=== PATIENT | male | born 1985 | race African-American/Black ===

== ENCOUNTER 2016-10-10 21:51 | Emergency (ER) | payer MEDICAID ==
[~2016-10-10] VITALS: Ht 175.3 cm; Wt 67.1 kg
[~2016-10-10 21:51] MED LIST: ACETAMINOPHEN-1 EAC1 ORAL; NORCO 5-325 TA1 EACH ORAL; ZOFRAN ODT4 MG ORAL
[2016-10-10] MEDS ORDERED: NEURONTIN300 MG ORAL (22:17)
[2016-10-10] MEDS ORDERED: VIMPAT200 MG PO (22:17)
[2016-10-10] MEDS ORDERED: KEPPRA1000 MG ORAL (22:17)
[2016-10-10] MEDS ORDERED: PROPRANOLOL HCL20 MG ORAL (22:17)
[2016-10-10 22:19] VITALS: BP 129/87
--- NOTE | 2016-10-10 22:27 | Emergency Room Report ---
History of Present Illness General Chief Complaint: Headache Source: Patient Present Illness HPI This is a 30-year-old male with a history of migraine and also history of seizure. He alleged that he had a seizure 3 days ago. Since then has been having headache. Normally when this happened him and he goes to the hospital and get IV Dilaudid for pain. He said his been taking Tylenol home without relief. Denies any fever chills. He lives at [place] but staying here with her friend because his apartment is "infested with bugs." Pain is 10 out of 10. Has nausea and vomiting. Allergies: Coded Allergies: IBUPROFEN (Verified Adverse Reaction, Intermediate, 11/19/13) LORAZEPAM (Unverified Adverse Reaction, Intermediate, 11/19/13) Patient History Past Medical History: see triage record, old chart reviewed, seizures, migraines Past Surgical History: other Pertinent Family History: none Social History: Denies: smoking Immunizations: other Reviewed Nursing Documentation: PMH: Agreed, PSxH: Agreed Nursing Documentation-PMH Hx Hypertension: Yes Hx Neurological Problems: Yes Hx Seizures: Yes Review of Systems Eye: Denies: blurred vision, eye pain ENT: Denies: ear pain, nose congestion, throat swelling Respiratory: Denies: cough, shortness of breath Cardiovascular: Denies: chest pain, palpitations Gastrointestinal: Reports: nausea, vomiting, Denies: abdominal pain, diarrhea Musculoskeletal: Denies: back pain, joint pain Skin: Denies: rash Neurological: Reports: headache, Denies: numbness Endocrine: Denies: increased thirst, increased urine Hematologic/Lymphatic: Denies: easy bruising All Other Systems: negative except mentioned in HPI Physical Exam Vital Signs Date Time Temp Pulse Resp B/P Pulse Ox O2 Delivery O2 Flow Rate FiO2 10/10/16 22:09 98.1 106 18 129/87 97 Room Air vitals normal Sp02 EP Interpretation: reviewed, normal General Appearance: well appearing, no apparent distress, alert Head: normocephalic, atraumatic Eyes: bilateral eye EOMI, bilateral eye PERRL ENT: hearing grossly normal, normal pharynx Neck: full range of motion, supple, no meningismus Respiratory: chest non-tender, lungs clear, normal breath sounds Cardiovascular #1: regular rate, rhythm, no murmur Gastrointestinal: normal bowel sounds, non tender, no mass, no organomegaly, no bruit, non-distended Musculoskeletal: back normal, gait/station normal, normal range of motion Psychiatric: mood/affect normal Skin: warm/dry Medical Decision Making Diagnostic Impression: Primary Impression: Headache Qualified Codes: R51 - Headache Additional Impression: Opiate dependence Qualified Codes: F11.20 - Opioid dependence, uncomplicated ER Course Pt presents with headache. It is suspicious that he lives at [facility] but he come here for this complaint. On the [employer] system, he had prescription for soma and Fioricet picked up again in a month. He claimed that he did not pick them up yet. He also last month had prescription for hydrocodone. I see no evidence of meningitis, bleed, sepsis. I am not comfortable giving him IV narcotic for his headache. Is not indicated. I offered [place] but patient refused. patient said that he does not drive so I see no need for DMV report. Last Vital Signs Date Time Temp Pulse Resp B/P Pulse Ox O2 Delivery O2 Flow Rate FiO2 10/10/16 22:09 98.1 106 18 129/87 97 Room Air Status: unchanged Disposition: HOME, SELF-CARE Condition: Stable Patient Instructions: Migraine Headache Additional Instructions: Followup with your DrVinay in 2-3 days. Follow up to for refills her medication. Return if symptom worsen. ANKUSH MEYERS M.D. Oct 10, 2016 22:27
[2016-10-10] MEDS ORDERED: Norco 5mg/325mg tab ORAL ONE (22:30)
[2016-10-10 22:35] VITALS: BP 129/87
== END 2016-10-10 22:35 | disposition home or self-care (01) ==
LOC: EMR 22:05
DX: R51 Headache (principal); F11.20 Opioid dependence, uncomplicated; I10 Essential (primary) hypertension; Z88.6 Allergy status to analgesic agent; Z88.8 Allergy status to other drugs, medicaments and biological substances
CPT/HCPCS: 99282